=== PATIENT | male | born 1980 | race Caucasian/White ===

== ENCOUNTER 2016-05-24 08:02 | Emergency (ER) | payer OTHER ==
[~2016-05-24] VITALS: Ht 188 cm; Wt 104.1 kg
[~2016-05-24 08:02] MED LIST: CLON1TAB3 PO; METH10TA2 PO
[2016-05-24 08:08] VITALS: TEMP 36.5; Ht 188 cm; Wt 104.1 kg
[2016-05-24] MEDS ORDERED: METH10TA PO (08:21)
[2016-05-24] MEDS ORDERED: TRAZ100T29 PO (08:21)
--- NOTE | 2016-05-24 08:33 | EMERGENCY ROOM VISIT NOTE ---
History Report prepared by Lakeishaibloida: Ramona Crowell Under the Supervision of: Dr. Judy Devi M.D. First contact with patient: 08:14 Chief Complaint: HEAD INJURY (MINOR) Stated Complaint: FELL AT HIT HEAD YESTERDAY-KNOCKED OUT History of Present Illness The patient is a 35 year old male who presents to the Emergency Room with complaints of a head injury that occurred yesterday. He has had constant pain since then, which he currently rates a 5/10 in severity. The patient states that he was ice skating yesterday and slipped and fell. He hit the back of his head on the ice and lost consciousness. The next thing he remembers is being carried off of the ice. The patient had some nausea yesterday but denies vomiting. He denies any other injuries from the fall. He states that he did not want to come to the ER yesterday for evaluation because his daughter was staying with him. Source of History: patient Onset: yesterday Position: head Symptom Intensity: 5/10 Timing: constant Associated Symptoms: + nausea, No vomiting Review of Systems See HPI for pertinent positives & negatives. A total of 10 systems reviewed and were otherwise negative. Past Medical & Surgical Medical Problems: (1) LUMBAR DISC DISPLACEMENT Family History No pertinent family history stated. Social History Smoking Status: Never Smoker Drug Use: none Marital Status: Occupation Status: employed Current/Historical Medications Scheduled Docusate Sodium (Dulcolax Stool Softener), 100 MG PO DAILY Methadone Hcl (Dolophine), 100 MG PO DAILY Pantoprazole (Protonix), 40 MG PO DAILY Ranitidine Hcl (Zantac), 150 MG PO BID Trazodone Hcl (Trazodone), 100 MG PO HS Allergies Coded Allergies: Penicillins (Verified Allergy, Unknown, FULL BODY RASH/SOB CHILD, TOLERATED ROCEPHIN 8, 05/24/16) Physical Exam Vital Signs Date Time Temp Pulse Resp B/P Pulse Ox O2 Delivery O2 Flow Rate FiO2 05/24/16 10:17 65 16 131/67 98 Room Air 05/24/16 08:08 36.5 69 18 118/75 96 Room Air Physical Exam Vital signs reviewed. General: Well-appearing 35 year old male, in no significant distress. HEENT: No scleral icterus, PERRLA, neck supple, no C-spine tenderness, small hematoma to the back of his head. Cardiovascular: Regular rate and rhythm, no extra sounds. Pulmonary: Clear to auscultation bilaterally, normal work of breathing. Abdomen: Soft, nontender, nondistended, positive bowel sounds. Musculoskeletal: Atraumatic, no peripheral edema. Neurologic: Patient awake alert and oriented x 3, full strength in all 4 extremities. Cranial nerves 2 through 12 grossly intact. Skin: Warm, dry, no rash Medical Decision & Procedures ER Provider Diagnostic Interpretation: Radiology results as stated below per my review and radiologist interpretation: HEAD CT NONCONTRAST CT DOSE: 614.27 mGy.cm HISTORY: Mental status change CHI, +LOC TECHNIQUE: Multiaxial CT images of the head were performed without the use of intravenous contrast. Comparison: 10/17/2012 Findings: The paranasal sinuses and mastoid air cells are clear. The calvarium and skull base are intact. The ventricles and sulci are within normal limits. There is no mass, hematoma, midline shift, or acute infarct. Impression: No acute intracranial abnormality. Electronically signed by: Juan Mathew M.D. 05/24/2016 8:48 AM Dictated Date/Time: 05/24/2016 8:47 AM ED Course 0818: The patient was evaluated in room A3. A complete history and physical examination was performed. 1018: Upon reevaluation, the patient was resting comfortably. I discussed findings with the patient. He verbalized agreement of the treatment plan. The patient was discharged home. Medical Decision Differential diagnosis includes contusion, skull fracture, intracranial hemorrhage, concussion. This patient was evaluated and appeared to be in no significant distress. IV access was obtained and laboratory work was drawn. The patient was placed on the residential property consultant and found to be in a normal sinus rhythm. CT scan of the head was performed and reveals no evidence of acute intracranial hemorrhage. The CT scan of the cervical spine reveals no evidence of acute bony abnormality. The patient's injury was 24 hours ago. He is stable for discharge at this time. He will use Tylenol and ibuprofen as needed for pain. He was given a head injury handout. The patient will follow-up with his physician this week for reevaluation return to the ER for worsening of symptoms or any medical concerns. Impression Primary Impression: Closed head injury Additional Impression: Cervical strain Scribe Attestation The scribe's documentation has been prepared under my direction and personally reviewed by me in its entirety. I confirm that the note above accurately reflects all work, treatment, procedures, and medical decision making performed by me. Departure Information Dispostion Home / Self-Care Referrals Osmani Matt D.O. (PCP) Patient Instructions ED Head Injury Closed, My [facility] Additional Instructions Diagnosis: Closed head injury Please read head injury instructions. Tylenol 650 mg every 6 hours as needed for pain. Please avoid any repeat head injury until symptoms completely resolve. Please follow-up with your primary care physician this week for reevaluation. Return to the ER for worsening of symptoms or any medical concerns. Problem Qualifiers Primary Impression: Closed head injury Encounter type: initial encounter Qualified Codes: S09.90XA - Unspecified injury of head, initial encounter
--- NOTE | 2016-05-24 08:49 | DIAGNOSTIC IMAGING REPORT ---
HEAD CT NONCONTRAST CT DOSE: 614.27 mGy.cm HISTORY: Mental status change CHI, +LOC TECHNIQUE: Multiaxial CT images of the head were performed without the use of intravenous contrast. Comparison: 10/17/2012 Findings: The paranasal sinuses and mastoid air cells are clear. The calvarium and skull base are intact. The ventricles and sulci are within normal limits. There is no mass, hematoma, midline shift, or acute infarct. Impression: No acute intracranial abnormality. Electronically signed by: Juan Mathew M.D. 05/24/2016 8:48 AM Dictated Date/Time: 05/24/2016 8:47 AM
[2016-05-24 10:17] VITALS: BP 131/67; PULSE 65; O2SAT 98
[2016-10-08] MEDS ORDERED: GABA-113 PO (10:43)
[2016-11-09] MEDS ORDERED: PANT40TA PO (08:21)
[2016-11-09] MEDS ORDERED: RANI150T3 PO (08:21)
[2016-11-09] MEDS ORDERED: DOCU-105 PO (08:21)
== END 2016-05-24 10:19 | disposition home or self-care (01) ==
LOC: C.EDB 08:05 → C.EDA 10:19
DX: S09.90XA Unspecified injury of head, initial encounter (principal); S16.1XXA Strain of muscle, fascia and tendon at neck level, initial encounter; W00.0XXA Fall on same level due to ice and snow, initial encounter; Y93.21 Activity, ice skating; Z79.899 Other long term (current) drug therapy

== ENCOUNTER → 2016-08-18 | Outpatient (CLI) | payer OTHER ==
[~2016-08-18] MED LIST changes: +ACET-1311 PO; -CLON1TAB3 PO; +DOCU-105 PO; +GABA-113 PO; +METH10CO PO; +METH10TA PO; -METH10TA2 PO; +PANT40TA PO; +RANI150T3 PO; +RXC5 PO; +TRAZ100T29 PO
--- NOTE | 2016-08-18 09:47 | DIAGNOSTIC IMAGING REPORT ---
LEFT HIP UNILATERAL MIN 2 VIEWS CLINICAL HISTORY: LEFT HIP PAIN COMPARISON: None. DISCUSSION: The bones and joint spaces appear intact. There is no evidence of fracture, dislocation or bony disease. There is no evidence for soft tissue swelling. IMPRESSION: Negative study. Electronically signed by: Juan Mathew M.D. 08/18/2016 9:45 AM Dictated Date/Time: 08/18/2016 9:45 AM
--- NOTE | 2016-08-18 09:48 | DIAGNOSTIC IMAGING REPORT ---
LUMBAR SPINE 5 VIEWS HISTORY: Pain LBP COMPARISON: None. FINDINGS: There is no fracture. No subluxation. Mild degenerative disc change L5-S1 IMPRESSION: Mild degenerative disc change L5-S1. Otherwise negative study Electronically signed by: Juan Mathew M.D. 08/18/2016 9:46 AM Dictated Date/Time: 08/18/2016 9:46 AM
== END | disposition home or self-care (01) ==
LOC: C.RDSM 09:36
PROVIDERS: ATTEND Family Medicine
DX: M54.5 Low back pain (principal); M25.552 Pain in left hip

== ENCOUNTER → 2016-09-16 | Outpatient (CLI) | payer OTHER ==
--- NOTE | 2016-09-16 10:40 | DIAGNOSTIC IMAGING REPORT ---
LUMBAR SPINE MRI HISTORY: Pain. Neuropathy. LUMBAR RADICULOPATHY TECHNIQUE: Multiplanar multisequence MRI of the lumbar spine was performed without the use of contrast. COMPARISON: None. FINDINGS: For the purpose of the report the L5-S1 disc space will be located on axial image 23 of 25. Moderate degenerative disc change from L4 through S1. Posterior disc herniation L4-L5. Posterior disc bulge L5-S1. No significant bone marrow replacing process. L1-L2: No significant central canal or neural foraminal narrowing. L2-L3: No significant central canal or neural foraminal narrowing. L3-L4: No significant central canal or neural foraminal narrowing. L4-L5: Large left posterior disc herniation. Considerable deformity left anterior aspect thecal sac. Mild compromise left neuroforamina. L5-S1: Mild broad-based bulging disc. Mild narrowing left neuroforamina. Minimal impact anterior thecal sac. IMPRESSION: 1. Large Left posterior disc herniation L4-L5. 2. Mild broad-based disc bulge L5-S1. Electronically signed by: Juan Mathew M.D. 09/16/2016 10:39 AM Dictated Date/Time: 09/16/2016 10:36 AM
== END | disposition home or self-care (01) ==
LOC: C.MRI 09:06
PROVIDERS: ATTEND Family Medicine
DX: M25.552 Pain in left hip (principal); M54.16 Radiculopathy, lumbar region

== ENCOUNTER → 2016-10-08 | Day surgery (SDC) | payer SELFPAY ==
[2016-10-04 11:07] VITALS: Ht 188 cm; Wt 95.5 kg
[~2016-10-08] VITALS: Ht 188 cm; Wt 95.5 kg
[~2016-10-08] MED LIST changes: -ACET-1311 PO; +BUPIVACAINE 0.25% 2.5MG/ML PF 10 ML VIAL ONE; +LIDOCAINE HCL 1% MPF 5 ML VIAL ONE; -METH10TA PO; -RXC5 PO; +SODIUM CHLORIDE 0.9% INJ 10 ML VIAL ONE
--- NOTE | 2016-10-08 11:13 | History & Physical Bridge - SC ---
H&P Re-Evaluation Bridge Note: I have examined the patient, reviewed the History & Physical and in the interval since the performance of the History & Physical I have noted the following changes of clinical significance: No changes noted
[2016-10-08] MEDS: IOPAMIDOL INJ 61% 15 ML VIAL ONE (11:36)
[2016-10-08 11:46] VITALS: BP 133/84; PULSE 60; TEMP 36.8; O2SAT 96
--- NOTE | 2016-10-08 11:50 | Discharge Instructions ---
Discharge Instructions Date of Service Oct 08, 2016. Visit Reason for Visit: Lumbar Disc Displacement Discharge Discharge Diagnosis / Problem: Left leg pain Discharge Goals Goal(s): Decrease discomfort, Improve function Medications Stopped Medications Name(s): advil stopped 3 days ago Activity Recommendations Activity Limitations: resume your previous activity Anesthesia . Post Anesthesia Instructions: If you have had General Anesthesia or IV Sedation: * Do not drive today. * Resume driving when surgeon permits. * Do not make important decisions or sign legal documents today. * Call surgeon for: 1. Temperature elevations greater than 101 degrees F. 2. Uncontrollable pain. 3. Excessive bleeding. 4. Persistent nausea and vomiting. 5. Medication intolerance (nausea, vomiting or rash). * For nausea and vomiting use only clear liquids such as: tea, soda, bouillon until nausea subsides, then gradually increase diet as tolerated. * If you have any concerns or questions, call your surgeon's office. If physician is unavailable and it is an emergency, call 911 or go to the nearest emergency room. . Diet Recommendations Recommended Home Diet: resume previous diet Procedures Procedures Performed: Lumbar Epidural Steroid Injection Pending Studies Studies pending at discharge: no Medical Emergencies . Who to Call and When: Medical Emergencies: If at any time you feel your situation is an emergency, please call 911 immediately. . Non-Emergent Contact Non-Emergency issues call your: Specialist . . "Provider Documentation" section prepared by Augustine Goss. .
--- NOTE | 2016-10-08 11:52 | [facility] Operative Report ---
Operative Report Date of Service Oct 08, 2016. Operative Report DATE OF OPERATION: 10/08/2016 PREOPERATIVE DIAGNOSIS: L4-5 herniated nucleus pulposus with left lower extremity radiculopathy. POSTOPERATIVE DIAGNOSIS: Same. PROCEDURE: Left paramedian L5- S1 intralaminar epidural steroid injection under fluoroscopic guidance. SURGEON: Dr. Augustine Goss. INDICATIONS: The patient is a 36-year-old white male who presents today for an epidural to provide him with relief. PHYSICAL EXAMINATION: GENERAL: Pleasant male seated comfortably in no apparent distress. MUSCULOSKELETAL EXAMINATION: Lumbar paraspinal muscles were palpated. They were nontender. He had no sensitivity of the sciatic notch. He had normal lower extremity strength. Negative seated straight leg raises and had no difficulty with hip adduction. CONSENT: Verbal and written consent was obtained from the patient. Risks and benefits were reviewed. Risks include but are not limited to epidural abscess, epidural hematoma, allergic reaction, dural puncture. The patient wishes to proceed. PROCEDURE: The patient was taken back to the special procedures room of the [facility] where he was maintained in a prone position. Backside was cleansed with Betadine x3 and a dry sterile dressing was applied. Fluoroscope was used to identify the L1-2 intralaminar space and overlying skin on the right side was anesthetized with 4 mL of lidocaine 1% with a 25 gauge 1.5-inch needle. A 22-gauge 3-1/2 inch Tuohy needle was then directed down towards the intralaminar space. It was advanced under lateral fluoroscopic guidance. Loss of resistance was noted and Isovue-300 contrast 1 mL was injected in which demonstrated epidural uptake pattern which was confirmed with both AP and lateral views. He then underwent injection after negative aspiration of 40 mg of Depo-Medrol and 4 mL of preservative free sodium chloride. Injection was well tolerated. DISPOSITION: 1. The patient is taken out into the discharge recovery area where he will be discharged home once discharge criteria have been met. 2. Follow up in the [facility] office in 2-4 weeks. I attest to the content of the Intraoperative Record and any orders documented therein. Any exceptions are noted below.
== END | disposition home or self-care (01) ==
LOC: X.SURG 10:30
PROVIDERS: ATTEND Physical Medicine & Rehabilitation
DX: M51.87 Other intervertebral disc disorders, lumbosacral region (principal)

== ENCOUNTER 2016-11-09 08:43 | Observation (INO) | payer OTHER ==
[~2016-11-09] VITALS: Ht 188 cm; Wt 98.0 kg
[~2016-11-09 08:43] MED LIST changes: -BUPIVACAINE 0.25% 2.5MG/ML PF 10 ML VIAL ONE; -LIDOCAINE HCL 1% MPF 5 ML VIAL ONE; -METH10CO PO; -SODIUM CHLORIDE 0.9% INJ 10 ML VIAL ONE
[2016-11-09] MEDS ORDERED: ONDANSETRON INJ 2 MG/ML 2 ML VIAL IV STA (09:29)
[2016-11-09] MEDS ORDERED: HYDROmorphone INJ 1 MG/ML SYR IV STA (09:29)
--- NOTE | 2016-11-09 09:46 | DIAGNOSTIC IMAGING REPORT ---
CHEST ONE VIEW PORTABLE HISTORY: Low back pain COMPARISON: Chest 11/08/2005. FINDINGS: The lungs are clear. Cardiac silhouette is normal in size. No pleural effusions. No pneumothorax. IMPRESSION: No acute process. Electronically signed by: Braxton Chaney M.D. 11/09/2016 9:45 AM Dictated Date/Time: 11/09/2016 9:44 AM
[2016-11-09 09:58] LABS: BASO % 0.9 %; BASO ABS # 0.04 K/uL (0-0.2); COMPLETE YES; EOS % 4.1 %; HEMATOCRIT 36.4 % (42-52); LYMPH % 40.7 %; LYMPH ABS # 1.77 K/uL (1.2-3.4); MEAN CELL VOLUME 88.3 fL (80-100); MEAN CORPUSCULAR HEMOGLOBIN 29.6 pg (25-34); MEAN CORPUSCULAR HGB CONC 33.5 g/dl (32-36); MEAN PLATELET VOLUME 8.6 fL (7.4-10.4); MONO % 8.3 %; PLATELET COUNT 313 K/uL (130-400); RED BLOOD COUNT 4.12 M/uL (4.7-6.1); WHITE BLOOD COUNT 4.35 K/uL (4.8-10.8)
--- NOTE | 2016-11-09 09:58 | EMERGENCY ROOM VISIT NOTE ---
History First contact with patient: 08:52 Chief Complaint: BACK PAIN Stated Complaint: ACCUTE SEVERE BACK PAIN - LOWER BACK AND LEFT HIP History of Present Illness The patient is a 36 year old male who presents to the Emergency Room with complaints of "acute severe back pain, low back pain and left hip". The patient states that he has a history of low back pain, and has been following with Dr. Goss locally for such. He states that back in August, he fell down a flight of steps injuring his low back. He states that he an MRI performed on September 16, which reviewed large bulging disks. He states that he has been unable to work since August, and had to quit his job moved back in with his parents. He had had to change his car from a standard traumatic secondary to his degree of discomfort. He rates the low back pain at rest is 6/10, and when it's aggravated it's a 9/10. He describes the pain as burning, shooting, stabbing pain that radiates down the left leg. He also notes a numbness sensation in the left leg. He has had spinal injections with minimal relief. Today he had an appointment with Dr. Goss, and secondary to his degree of pain and was referred here by Dr. Mcgrath for further evaluation, management and potential surgical consultation. The patient states that the pain is in the low back radiating down the left leg. He notes minimal numbness in that region. He denies any bowel or bladder incontinence. He notes that he had a recent MRI, which shows a large disc bulge. He denies any fevers or chills. Review of Systems A complete 10-point Review of Systems was discussed with the patient, with pertinent positives and negatives listed in the History of Present Illness. All remaining Review of Systems questions can be considered negative unless otherwise specified. Past Medical/Surgical History Medical Problems: (1) Anxiety (2) Back pain (3) Disc herniation (4) GERD (gastroesophageal reflux disease) (5) History of opioid addiction (6) LUMBAR DISC DISPLACEMENT Surgical Problems: (1) H/O knee surgery (2) Status post arthroscopy of hip Social History Smoking Status: Never Smoker Drug Use: none Marital Status: Occupation Status: employed Current/Historical Medications Scheduled Docusate Sodium (Dulcolax Stool Softener), 100 MG PO BID Methadone Hcl (Methadone Hcl Intensol), 103 MG PO QAM Pantoprazole (Protonix), 40 MG PO QAM Ranitidine Hcl (Zantac), 150 MG PO QAM Scheduled PRN Acetaminophen (Tylenol), 325 MG PO UD PRN for Pain Physical Exam Vital Signs Date Time Temp Pulse Resp B/P (MAP) Pulse Ox O2 Delivery O2 Flow Rate FiO2 11/09/16 15:19 64 18 117/65 95 Room Air 11/09/16 13:37 84 18 120/54 11/09/16 11:49 64 18 136/73 11/09/16 10:00 79 11/09/16 09:54 72 18 137/73 97 Room Air 11/09/16 09:53 97 Room Air 11/09/16 08:45 36.4 93 20 127/69 100 Room Air Physical Exam VITAL SIGNS - Vital signs and nursing notes were reviewed. Afebrile, normotensive, non-tachycardic and is saturating well on room air 100%. GENERAL -36-year-old male appearing his stated age who is in no acute distress. Communicates well with provider and answers questions appropriately. SKIN - Without rashes. No petechial rashes. HEAD - NC/AT. EYES - no hyphema or scleral icterus. EARS - No deformities of external structures noted on gross examination bilaterally. NOSE - Midline and without cyanosis. No epistaxis or purulent drainage noted. MOUTH/OROPHARYNX - Without perioral cyanosis. LUNGS - Chest wall symmetric without accessory muscle use, intercostals retractions, or central cyanosis. Normal vesicular breath sounds CTA B/L. No wheezes, rales, or rhonchi appreciated. CARDIAC - RRR with S1/S2. No murmur, rubs, or gallops appreciated. ABDOMEN - Abdominal contour without pulsations or visible masses. BS normoactive all four quadrants. No tenderness, palpable masses, hepatosplenomegaly, or ascites noted. EXTREMITIES - No clubbing or peripheral cyanosis. No pretibial edema present. + 5/5 strength noted in UE/LE bilaterally. NEUROLOGIC - Cranial nerves II through XII grossly intact. Sensory intact to light touch throughout. PSYCH - A&O. and cooperates fully with examiner. Pt is very pleasant and interacts well with examiner. Medical Decision & Procedures ER Provider Diagnostic Interpretation: CHEST ONE VIEW PORTABLE HISTORY: Low back pain COMPARISON: Chest 11/08/2005. FINDINGS: The lungs are clear. Cardiac silhouette is normal in size. No pleural effusions. No pneumothorax. IMPRESSION: No acute process. Electronically signed by: Braxton Chaney M.D. 11/09/2016 9:45 AM Dictated Date/Time: 11/09/2016 9:44 AM Laboratory Results 11/09/16 09:44 Red Blood Count 4.12, Mean Corpuscular Volume 88.3, Mean Corpuscular Hemoglobin 29.6, Mean Corpuscular Hemoglobin Concent 33.5, Mean Platelet Volume 8.6, Neutrophils (%) (Auto) 46.0, Lymphocytes (%) (Auto) 40.7, Monocytes (%) (Auto) 8.3, Eosinophils (%) (Auto) 4.1, Basophils (%) (Auto) 0.9, Neutrophils # (Auto) 2.00, Lymphocytes # (Auto) 1.77, Monocytes # (Auto) 0.36, Eosinophils # (Auto) 0.18, Basophils # (Auto) 0.04 11/09/16 09:44 Test 11/09/16 09:44 White Blood Count 4.35 K/uL (4.8-10.8) Red Blood Count 4.12 M/uL (4.7-6.1) Hemoglobin 12.2 g/dL (14.0-18.0) Hematocrit 36.4 % (42-52) Mean Corpuscular Volume 88.3 fL (80-100) Mean Corpuscular Hemoglobin 29.6 pg (25-34) Mean Corpuscular Hemoglobin Concent 33.5 g/dl (32-36) Platelet Count 313 K/uL (130-400) Mean Platelet Volume 8.6 fL (7.4-10.4) Neutrophils (%) (Auto) 46.0 % Lymphocytes (%) (Auto) 40.7 % Monocytes (%) (Auto) 8.3 % Eosinophils (%) (Auto) 4.1 % Basophils (%) (Auto) 0.9 % Neutrophils # (Auto) 2.00 K/uL (1.4-6.5) Lymphocytes # (Auto) 1.77 K/uL (1.2-3.4) Monocytes # (Auto) 0.36 K/uL (0.11-0.59) Eosinophils # (Auto) 0.18 K/uL (0-0.5) Basophils # (Auto) 0.04 K/uL (0-0.2) RDW Standard Deviation 48.4 fL (36.4-46.3) RDW Coefficient of Variation 15.0 % (11.5-14.5) Immature Granulocyte % (Auto) 0.0 % Immature Granulocyte # (Auto) 0.00 K/uL (0.00-0.02) Prothrombin Time 10.5 SECONDS (9.0-12.0) Prothromb Time International Ratio 1.0 (0.9-1.1) Activated Partial Thromboplast Time 25.4 SECONDS (21.0-31.0) Partial Thromboplastin Ratio 1.0 Anion Gap 4.0 mmol/L (3-11) Est Creatinine Clear Calc Drug Dose 143.8 ml/min Estimated GFR () 130.7 Estimated GFR (Non- 112.7 BUN/Creatinine Ratio 13.0 (10-20) Calcium Level 8.7 mg/dl (8.5-10.1) Total Bilirubin 0.2 mg/dl (0.2-1) Aspartate Amino Transf (AST/SGOT) 18 U/L (15-37) Alanine Aminotransferase (ALT/SGPT) 28 U/L (12-78) Alkaline Phosphatase 43 U/L (45-117) Total Protein 6.8 gm/dl (6.4-8.2) Albumin 3.7 gm/dl (3.4-5.0) Globulin 3.1 gm/dl (2.5-4.0) Albumin/Globulin Ratio 1.2 (0.9-2) Medications Administered Medications (Trade) Dose Ordered Sig/Vincent Route Start Time Stop Time Status Last Admin Dose Admin Hydromorphone HCl (Dilaudid Inj) 1 mg NOW STAT IV 11/09/16 09:29 11/09/16 09:31 DC 11/09/16 09:45 1 MG Ondansetron HCl (Zofran Inj) 4 mg NOW STAT IV 11/09/16 09:29 11/09/16 09:31 DC 11/09/16 09:45 4 MG Hydromorphone HCl (Dilaudid Inj) 0.5 mg NOW STAT IV 11/09/16 10:27 11/09/16 10:28 DC 11/09/16 10:32 0.5 MG Hydromorphone HCl (Dilaudid Inj) 0.5 mg NOW STAT IV 11/09/16 11:30 11/09/16 11:31 DC 11/09/16 11:47 0.5 MG Medical Decision Patient was seen and evaluated as above. After obtaining a thorough history and physical examination IV access was initiated, and the above workup was performed. Patient presents to us today with low back pain, referred by Dr. Goss. He has a history of bulging disks, he has been in excruciating pain. He presents to us today it appears to be in a good deal of pain, and was provided Dilaudid. My attending noted that Dr. Goss personally called in and spoke with him. He recommended surgical consultation for his spine. I then obtained basic lab work, did not feel that reimaging was necessary as there is no evidence of cauda equina syndrome, and placed a call out to orthopedics. This was to Dr. Mcgrath. Patient was given 1 mg of Dilaudid for his pain. He was reevaluated and was feeling continued pain. He was given 0.5 mg of Dilaudid. EKG is unremarkable. This was obtained secondary to potential surgical intervention. Lab work was unremarkable for significant process. I spoke with the attending physician, as well as Dr. Mcgrath regarding the case. Dr. Mcgrath informed me that he would like to perform surgery on the individual tomorrow. He'll be admitted to medicine for further evaluation and management. Please refer to further documentation regarding his stay. In evaluation treatment this patient the following differential diagnoses were entertained: Herniated disc, cauda equina syndrome, strain, among others. Impression Primary Impression: Back pain Departure Information Dispostion Admitted as an inpatient Condition GOOD Referrals Osmani Matt D.O. (PCP) Patient Instructions My [facility]
[2016-11-09 10:07] LABS: PROTHROMBIN TIME (PATIENT) 10.5 SECONDS (9.0-12.0)
[2016-11-09 10:18] LABS: CALCIUM 8.7 mg/dl (8.5-10.1); CREATININE 0.81 mg/dl (0.60-1.40)
[2016-11-09 10:20] LABS: ALB/GLOB RATIO 1.2 (0.9-2)
[2016-11-09] MEDS ORDERED: HYDROmorphone INJ 0.5 MG/0.5 ML SYR IV STA ×2 (10:27→11:30)
[2016-11-09] MEDS ORDERED: METH10CO PO (11:07)
[2016-11-09] MEDS ORDERED: POLYETHYLENE (MIRALAX) 17 GM PACK PO PRN (15:45)
[2016-11-09] MEDS ORDERED: ONDANSETRON INJ 2 MG/ML 2 ML VIAL IV PRN (15:45)
[2016-11-09] MEDS ORDERED: IV FLUIDS COMPLETED PRN (15:45)
[2016-11-09] MEDS ORDERED: ACET-1311 PO (16:25)
[2016-11-09 16:40] VITALS: BP 147/81; PULSE 70; TEMP 36.8; O2SAT 99
[2016-11-09] MEDS: HYDROmorphone INJ 1 MG/ML SYR IV PRN ×3 (16:48→23:24)
[2016-11-09] MEDS: ACETAMINOPHEN 325 MG TAB PO PRN (17:16)
[2016-11-09 17:52] VITALS: BP 147/81; PULSE 70; TEMP 36.8; O2SAT 99; Ht 188 cm; Wt 98.0 kg
[2016-11-09 18:17] VITALS: O2SAT 99
--- NOTE | 2016-11-09 18:30 | History and Physical ---
History & Physical Date & Time of Service: Nov 09, 2016 at 16:20 Chief Complaint: Accute Severe Back Pain - Lower Back And Left Hip Primary Care Physician: Osmani Matt D.O. History of Present Illness Source: patient, clinic records, hospital records This is a 36 y/o male with PMH of GERD, lumbar disc herniation, hx opioid addiction on methadone, who presents to the ED with back pain. Patient states back pain started s/p fall in August 2016. No further injuries, but pain has progressively worsened. Pain is located in low back with radiation to left lower extremity. He reports ongoing paresthesias of anterior left reynoso and dorsal aspect of left foot. He has been unable to work secondary to pain. Ambulating has been painful. Has been following with Dr. Goss of [facility] orth[facility]. MRI on 09/16/16 showed large left posterior disc herniation L4-L5, mild broad-based disc bulge L5-S1. Had steroid injection without relief. Was initially taking gabapentin and Flexeril but ran out. Has been taking Tylenol. Has also been taking a family member's Percocet, he states this was because he could not get a sooner appointment with his orthopedist. He saw Dr. Goss this morning who sent him to the ER. He received 3 doses of Dilaudid which helped, but the pain is now returning, currently rated 8/10. He denies weakness, groin numbness, or bowel or bladder incontinence. Has been taking Colace for hard stools. Denies any fevers, chills, chest pain, SOB, N/V. Denies history of cardiac disease, stroke, HTN, DM, kidney disease. Past Medical/Surgical History Medical Problems: (1) Anxiety Status: Chronic (2) Disc herniation Status: Chronic (3) GERD (gastroesophageal reflux disease) Status: Chronic (4) History of opioid addiction Status: Chronic (5) LUMBAR DISC DISPLACEMENT Status: Chronic Surgical Problems: (1) H/O knee surgery Status: Chronic (2) Status post arthroscopy of hip Status: Chronic Family History FH: cancer FATHER Social History Smoking Status: Never Smoker Smokeless Tobacco Use: former smokeless tobacco use Alcohol Use: none Drug Use: none Marital Status: Housing status: other (currently staying with family due to his back pain) Occupational Status: other (has not been able to work due to back pain) Immunizations History of Influenza Vaccine: No History of Tetanus Vaccine?: Yes History of Pneumococcal: No History of Hepatitis B Vaccine: Yes Multi-Drug Resistant Organisms History of MDRO: No Allergies Coded Allergies: Penicillins (Verified Allergy, Unknown, FULL BODY RASH/SOB CHILD, TOLERATED ROCEPHIN 10/31, 11/09/16) Home Medications Scheduled Docusate Sodium (Dulcolax Stool Softener), 100 MG PO BID Methadone Hcl (Methadone Hcl Intensol), 103 MG PO QAM Pantoprazole (Protonix), 40 MG PO QAM Ranitidine Hcl (Zantac), 150 MG PO QAM Scheduled PRN Acetaminophen (Tylenol), 325 MG PO UD PRN for Pain Review of Systems Ten systems reviewed and negative except as noted in HPI. Physical Exam Vital Signs Date Time Temp Pulse Resp B/P (MAP) Pulse Ox O2 Delivery O2 Flow Rate FiO2 11/09/16 15:19 64 18 117/65 95 Room Air 11/09/16 13:37 84 18 120/54 11/09/16 11:49 64 18 136/73 11/09/16 10:00 79 11/09/16 09:54 72 18 137/73 97 Room Air 11/09/16 09:53 97 Room Air 11/09/16 08:45 36.4 93 20 127/69 100 Room Air General Appearance: WD/WN, no apparent distress Head: normocephalic, atraumatic Eyes: normal inspection, PERRL, EOMI, sclerae normal ENT: hearing grossly normal, pharynx normal Neck: supple, trachea midline Respiratory/Chest: lungs clear, normal breath sounds, no respiratory distress, no accessory muscle use Cardiovascular: regular rate, rhythm, no murmur Abdomen/GI: normal bowel sounds, non tender, soft Extremities/Musculoskelatal: normal inspection, no pedal edema Neurologic/Psych: alert, normal mood/affect, normal reflexes (bilateral patellar reflexes normal), oriented x 3, + pertinent finding (ankle flexion/ extension 5/5 RLE, 4/5 LLE (possibly secondary to pain), able to sense light touch on bilateral LE however subjective decreased sensation left anterior lower leg and dorsum of left foot) Skin: normal color, warm/dry Diagnostics Laboratory Results Results Past 24 Hours Test 11/09/16 09:44 Range/Units White Blood Count 4.35 4.8-10.8 K/uL Red Blood Count 4.12 4.7-6.1 M/uL Hemoglobin 12.2 14.0-18.0 g/dL Hematocrit 36.4 42-52 % Mean Corpuscular Volume 88.3 80-100 fL Mean Corpuscular Hemoglobin 29.6 25-34 pg Mean Corpuscular Hemoglobin Concent 33.5 32-36 g/dl Platelet Count 313 130-400 K/uL Mean Platelet Volume 8.6 7.4-10.4 fL Neutrophils (%) (Auto) 46.0 % Lymphocytes (%) (Auto) 40.7 % Monocytes (%) (Auto) 8.3 % Eosinophils (%) (Auto) 4.1 % Basophils (%) (Auto) 0.9 % Neutrophils # (Auto) 2.00 1.4-6.5 K/uL Lymphocytes # (Auto) 1.77 1.2-3.4 K/uL Monocytes # (Auto) 0.36 0.11-0.59 K/uL Eosinophils # (Auto) 0.18 0-0.5 K/uL Basophils # (Auto) 0.04 0-0.2 K/uL RDW Standard Deviation 48.4 36.4-46.3 fL RDW Coefficient of Variation 15.0 11.5-14.5 % Immature Granulocyte % (Auto) 0.0 % Immature Granulocyte # (Auto) 0.00 0.00-0.02 K/uL Prothrombin Time 10.5 9.0-12.0 SECONDS Prothromb Time International Ratio 1.0 0.9-1.1 Activated Partial Thromboplast Time 25.4 21.0-31.0 SECONDS Partial Thromboplastin Ratio 1.0 Sodium Level 139 136-145 mmol/L Potassium Level 4.0 3.5-5.1 mmol/L Chloride Level 109 98-107 mmol/L Carbon Dioxide Level 26 21-32 mmol/L Anion Gap 4.0 3-11 mmol/L Blood Urea Nitrogen 11 7-18 mg/dl Creatinine 0.81 0.60-1.40 mg/dl Est Creatinine Clear Calc Drug Dose 143.8 ml/min Estimated GFR () 130.7 Estimated GFR (Non- 112.7 BUN/Creatinine Ratio 13.0 10-20 Random Glucose 77 70-99 mg/dl Calcium Level 8.7 8.5-10.1 mg/dl Total Bilirubin 0.2 0.2-1 mg/dl Aspartate Amino Transf (AST/SGOT) 18 15-37 U/L Alanine Aminotransferase (ALT/SGPT) 28 12-78 U/L Alkaline Phosphatase 43 45-117 U/L Total Protein 6.8 6.4-8.2 gm/dl Albumin 3.7 3.4-5.0 gm/dl Globulin 3.1 2.5-4.0 gm/dl Albumin/Globulin Ratio 1.2 0.9-2 Diagnostic Radiology CHEST ONE VIEW PORTABLE HISTORY: Low back pain COMPARISON: Chest 11/08/2005. FINDINGS: The lungs are clear. Cardiac silhouette is normal in size. No pleural effusions. No pneumothorax. IMPRESSION: No acute process. EKG NSR, no ectopy or ischemic findings Impression Assessment and Plan BACK PAIN/ LUMBAR HERNIATED DISC S/p fall in August 2016 MRI on 09/16/16 showed large left posterior disc herniation L4-L5, mild broad- based disc bulge L5-S1 Pain control with IV Dilaudid 1 mg q3h PRN Consult ortho; Dr. Mcgrath is aware; plan is for surgical intervention in AM Preop workup- labs, EKG, CXR unremarkable; may proceed with surgery NPO after midnight HX OF OPIOID ADDICTION On methadone through [facility] ([phone]), dose needs to be verified during their business hours (5:30 am-1:30 pm) Methadone dose is 103 mg/ day per patient, will continue Patient counselled not to take family member's medications, but rather to present to ER if he cannot get an appointment and pain is uncontrolled CONSTIPATION Continue Colace PRN Miralax GERD Continue Protonix and Zantac DVT PROPHYLAXIS SCD's due to plan for surgery in am FULL CODE DISPOSITION Observation med/ surg Follows with Dr. Osmani Matt for primary care Patient seen in collaboration with Dr. Naqvi. Please see his addendum. Agree with above h and p. briefly 36YM with hx of fall and has disc prolapse and failed out patient treatment comes for elective surgery. patient is on methadone for opioid addiction. Complains of severe pain in back and left hip region. Afebrile. No chest pain or sob. Hemodynamics stable. 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 Y/N: Yes Risk Level: Low
--- NOTE | 2016-11-09 19:09 | Progress Note ---
Progress Note Date of Service Nov 09, 2016. Progress Note Pt scheduled for lumbar decompression tomorrow. Pt with chronic pain issue on methadone. Anesthesia plan was discussed and consent obtained. Pt was also advised of NPO time and chewing tobacco.
[2016-11-09] MEDS: SODIUM CHLORIDE 0.9% 1000ML 1,000 ML IV SCH (20:31)
[2016-11-09] MEDS: DOCUSATE SODIUM 100 MG CAP PO SCH (20:35)
[2016-11-09] MEDS: GABAPENTIN 100 MG CAP PO SCH (20:36)
[2016-11-09] MEDS: CYCLOBENZAPRINE HCL 5 MG TAB PO PRN (22:30)
[2016-11-09 22:38] VITALS: PULSE 82; O2SAT 94
[2016-11-09 22:46] VITALS: BP 124/82; PULSE 61; TEMP 36.8; O2SAT 96
[2016-11-10] VITALS (9 sets, daily range): BP systolic 112–136; BP diastolic 67–84; PULSE 58–102; TEMP 36.3–37.1; O2SAT 94–100
[2016-11-10] MEDS: ACETAMINOPHEN 325 MG TAB PO PRN (00:04)
[2016-11-10] MEDS: HYDROmorphone INJ 1 MG/ML SYR IV PRN ×17 (06:47→16:51)
[2016-11-10] MEDS ORDERED: NURSING VERBAL MED ORDER ONE ×3 (07:45→17:15)
[2016-11-10] MEDS ORDERED: NALOXONE HCL 0.4 MG/1 ML VIAL/CARP IV PRN ×3 (08:00→17:15)
[2016-11-10] MEDS: SODIUM CHLORIDE 0.9% 1000ML 1,000 ML IV SCH (08:17)
[2016-11-10] MEDS: GABAPENTIN 100 MG CAP PO SCH ×2 (08:18→20:33)
[2016-11-10] MEDS: DOCUSATE SODIUM 100 MG CAP PO SCH ×2 (08:18→20:34)
[2016-11-10] MEDS: PANTOprazole SOD 40 MG TAB PO SCH (08:20)
[2016-11-10] MEDS: RANITIDINE HCL 150 MG TAB PO SCH (08:20)
[2016-11-10] MEDS ORDERED: HYDROmorphone HCL 0.5MG/ML 50 ML CASSETTE IV PRN (08:30)
[2016-11-10] MEDS ORDERED: SODIUM CHLORIDE 0.9% 1000ML 1,000 ML IV SCH ×2 (08:30→17:15)
[2016-11-10] MEDS: METHADONE ORAL SOLN 2 MG/1ML PO SCH (08:41)
--- NOTE | 2016-11-10 10:19 | Orthopedic Consultation ---
Orthopedic Consultation Date of Consultation: Nov 10, 2016. Attending Physician: Jasvir Naqvi MD Reason for Consultation: Back and left leg pain History of Present Illness Very pleasant 36-year-old male who had the onset of severe back and left. Leg pain several weeks ago. He didn't managed as an outpatient with epidural injections. Unfortunately failed to provide any long-term relief. He is markedly debilitated secondary to the pain. He does of history of chronic back pain is being medically managed for this. Symptoms involving the lumbosacral junction extending the left buttock posterior thigh extending down to the anterior tibia and dorsum of his foot. Extremities asymptomatic. Denies any loss of bowel or bladder control. Past Medical/Surgical History Medical Problems: (1) Closed head injury Status: Acute Family History FH: cancer FATHER Social History Smoking Status: Never Smoker Smokeless Tobacco Use: former smokeless tobacco use Alcohol Use: none Drug Use: none Marital Status: Occupation Status: other (has not been able to work due to back pain) Allergies Coded Allergies: Penicillins (Verified Allergy, Unknown, FULL BODY RASH/SOB CHILD, TOLERATED ROCEPHIN 10/31, 11/09/16) Home Medications Scheduled Docusate Sodium (Dulcolax Stool Softener), 100 MG PO BID Methadone Hcl (Methadone Hcl Intensol), 103 MG PO QAM Pantoprazole (Protonix), 40 MG PO QAM Ranitidine Hcl (Zantac), 150 MG PO QAM Scheduled PRN Acetaminophen (Tylenol), 325 MG PO UD PRN for Pain Current Inpatient Medications Current Inpatient Medications Medications (Trade) Dose Ordered Sig/Vincent Route Start Time Stop Time Status Last Admin Dose Admin Miscellaneous (Iv Fluids Completed) 1 ea PRN PRN N/A 11/09/16 15:45 11/09/17 15:44 Acetaminophen (Tylenol Tab) 650 mg Q4H PRN PO 11/09/16 15:45 12/09/16 15:44 11/10/16 00:04 650 MG Polyethylene (Miralax Powder Packet) 17 gm DAILY PRN PO 11/09/16 15:45 12/09/16 15:44 Ondansetron HCl (Zofran Inj) 4 mg Q6H PRN IV 11/09/16 15:45 12/09/16 15:44 Hydromorphone HCl (Dilaudid Inj) 1 mg Q3H PRN IV 11/09/16 16:15 11/23/16 16:14 11/10/16 06:47 1 MG Docusate Sodium (coLACE CAP) 100 mg BID PO 11/09/16 21:00 12/09/16 20:59 11/10/16 08:18 100 MG Pantoprazole Sodium (Protonix Tab) 40 mg QAM PO 11/10/16 09:00 12/10/16 08:59 11/10/16 08:20 40 MG Ranitidine HCl (zANTac TAB) 150 mg QAM PO 11/10/16 09:00 12/10/16 08:59 11/10/16 08:20 150 MG Methadone HCl (Methadone HCl) 103 mg QAM PO 11/10/16 09:00 12/10/16 08:59 11/10/16 08:41 103 MG Cyclobenzaprine HCl (Flexeril Tab) 5 mg BID PRN PO 11/09/16 19:45 12/09/16 19:44 11/09/16 22:30 5 MG Gabapentin (Neurontin Cap) 200 mg BID PO 11/09/16 21:00 12/09/16 20:59 11/10/16 08:18 200 MG Sodium Chloride 1,000 ml @ 80 mls/hr [id number] IV 11/09/16 19:45 12/09/16 19:44 11/10/16 08:17 80 MLS/HR Naloxone HCl (Narcan Inj) 0.1 mg Q5M PRN IV 11/10/16 08:00 12/10/16 07:59 Hydromorphone HCl (Dilaudid Watch Parts Inspector) 25 mg PRN PRN IV 11/10/16 08:30 11/24/16 08:29 11/10/16 09:41 25 MG Sodium Chloride 1,000 ml @ 15 mls/hr Q24H IV 11/10/16 08:30 12/10/16 08:29 Physical Exam Date Time Temp Pulse Resp B/P (MAP) Pulse Ox O2 Delivery O2 Flow Rate FiO2 11/10/16 08:06 97 Room Air 11/10/16 08:04 36.5 60 16 128/84 (99) 97 Room Air 11/09/16 23:30 Room Air 11/09/16 22:46 36.8 61 16 124/82 (96) 96 Room Air 11/09/16 22:38 82 94 Room Air 11/09/16 18:17 99 Room Air 11/09/16 17:52 36.8 70 18 147/81 99 Room Air 11/09/16 16:40 36.8 70 18 147/81 (103) 99 Room Air 11/09/16 15:19 64 18 117/65 95 Room Air 11/09/16 13:37 84 18 120/54 11/09/16 11:49 64 18 136/73 On physical exam patient is in obvious distress. Exhibits reasonable strength detailed testing bilateral extremities plantar flexion dorsiflexion quadriceps. There is however breakaway weakness to examine left lower extremity secondary to pain. There is sensory deficits to left lower externally compared to right upper extremity. Is markedly positive tension signs straight-leg raising on the left contralateral signs on the right. Assessment & Plan Assessment herniated nucleus pulposus L4 5 on the left with severe spinal stenosis and neural encroachment. Patient's MRI performed in August of this year [facility] does demonstrate degenerative changes marked disc space collapse at L5-S1 and to a lesser degree at L4 5. There is a massive disc herniation L4 5 with severe canal encroachment and subsequent spinal stenosis. Is on the left side. There is significant compression of the traversing L5 nerve root on the left. Plan at this time the patient is an extensive course of nonoperative care is decline significantly in his significant distress. Subsequently would recommend a lumbar decompression. To adequately decompress the canal and addressed the massive disc herniation he would require a midline decompression at L4 5. And also partial discectomy on the left. 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 Risks benefits pros cons and alternatives were outlined in detail. Risk include but not limited to from anesthesia blindness sterile paralysis nerve damage blood loss infection. Benefits of hopefully marked improvement of his radicular complaints. At this time he is nothing by mouth we will try perform surgery as soon as possible.
[2016-11-10] MEDS ORDERED: MIDAZOLAM HCL 1 MG/ML 2ML VIAL ONE (13:16)
[2016-11-10] MEDS ORDERED: FENTANYL CITRATE INJ 50 MCG/1 ML 2 ML VIAL ONE ×3 (13:16→14:40)
[2016-11-10] MEDS ORDERED: CLINDAMYCIN 600 MG/54 ML D5W IV ONE (13:39)
[2016-11-10] MEDS ORDERED: BUPIVACAINE/EPINEPHRINE 0.5% MPF 1:200,000 10 ML VIAL ONE (13:46)
[2016-11-10] MEDS ORDERED: BACITRACIN 50000 UNIT VIAL ONE (13:46)
[2016-11-10] MEDS ORDERED: HYDROmorphone INJ 2 MG/ML SYR/VIAL ONE (14:14)
[2016-11-10] MEDS ORDERED: PROPOFOL IV EMULSION 10 MG/ML 20 ML VIAL IV ONE (14:25)
[2016-11-10] MEDS ORDERED: ROCURONIUM BROMIDE 10 MG/ML 5 ML VIAL ONE (14:25)
[2016-11-10] MEDS ORDERED: LIDOCAINE HCL 2% 2 ML VIAL (20MG/ML) ONE (14:25)
[2016-11-10] MEDS ORDERED: DEXAMETHASONE SOD INJ 4 MG/ML VIAL ONE (14:25)
[2016-11-10] MEDS ORDERED: ONDANSETRON INJ 2 MG/ML 2 ML VIAL ONE (14:25)
[2016-11-10] MEDS ORDERED: NEOSTIGMINE METHYLSULFATE 1 MG/ML 10ML VIAL ONE (15:02)
[2016-11-10] MEDS ORDERED: GLYCOPYRROLATE INJ 0.2 MG/ML VIAL ONE (15:02)
[2016-11-10] MEDS ORDERED: FLOSEAL HEMOSTATIC MATRIX 10ML TOP ONE (15:12)
[2016-11-10] MEDS ORDERED: KETOROLAC TROMETHAMINE 30 MG/ML VIAL ONE (15:21)
--- NOTE | 2016-11-10 15:23 | DIAGNOSTIC IMAGING REPORT ---
SPINE ONE VIEW, ANY LEVEL HISTORY: L4-L5 decompression. FLUOROSCOPY TIME: 4 seconds. FINDINGS: Intraoperative fluoroscopy was provided for the lumbar spine. 2 fluoroscopic spot images were obtained. IMPRESSION: Fluoroscopy provided for a L4-L5 decompression. The above report was generated using voice recognition software. It may contain grammatical, syntax or spelling errors. Electronically signed by: Juan Mathew M.D. 11/10/2016 3:21 PM Dictated Date/Time: 11/10/2016 3:21 PM
--- NOTE | 2016-11-10 15:29 | [facility] Operative Report ---
Operative Report Operative Date Nov 10, 2016. Pre-Operative Diagnosis Herniated nucleus pulposus L4 5 on the left with severe spinal stenosis and neural encroachment. Post-Operative Diagnosis same as pre-operative Procedure(s) Performed #1 lumbar decompression medial facetectomy and partial discectomy L4 5. #2 placement of posterior stabilization Coflex 12 mm in height. Surgeon Dr. Augustine Mcgrath Estimated Blood Loss 25ML Findings Spinal stenosis with herniated nuclear pulposus L4 5 Specimens A. Disc Material L4-L5 Description of Procedure Patient was met with preoperatively case discussed all questions are dressed. After informed consent patient was taken back to the operative suite after undergoing successful intubation placed in a prone position the Jamshid table top Lamberto frame. All promises well-padded eyes inspected to ensure there is no external pressure placed upon. This point lumbar spine was prepped and draped in the normal sterile fashion. With the assistance of fluoroscopy identified L4 5 disc space and midline incision was created overlying this region. Sharp dissection with the assistance of Bovie cautery was performed onto an exposing interlaminar spaces of 45 bilaterally. Self-retaining retractors placed. A midline decompression was then performed clean bilateral medial facetectomies to address all stenosis. Was able to mobilize the traversing L5 nerve root medially to address a massive disc herniation occupying lateral recess. This was removed in its entirety. The area was explored several times to ensure all instruments were addressed. At this complete I contoured the interlaminar space to accommodate a 12 mm Coflex implant. This is tapped in position and crimped into place. Incision was in copious irrigated 15 round LOBO drain inserted incision closed with 1 Vicryl in the fascia 2-0 Vicryl subcutaneously for Monocryl for final skin closure Steri- Strip sterile dressing placed patient we can taken back in stable condition. I attest to the content of the Intraoperative Record and any orders documented therein. Any exceptions are noted below.
[2016-11-10] MEDS ORDERED: OXYCODONE HCL IR 5 MG TAB (IMMEDIATE RELEASE) PO PRN (15:30)
[2016-11-10] MEDS ORDERED: LORAZEPAM INJ 1 MG in SYRINGE 0.5 ML IV PRN (15:30)
[2016-11-10] MEDS ORDERED: ACETAMINOPHEN 500 MG TAB PO PRN (15:30)
[2016-11-10] MEDS ORDERED: MAGNESIUM HYDROXIDE SUSP 30 ML UDC PO PRN (15:30)
[2016-11-10] MEDS ORDERED: DO NOT ADMINISTER PNEUMOCOCCAL VACCINE PRN ×2 (15:30)
[2016-11-10] MEDS ORDERED: LORAZEPAM 1 MG TAB PO PRN (15:30)
[2016-11-10] MEDS ORDERED: ACETAMINOPHEN 325 MG TAB PO PRN (15:30)
[2016-11-10] MEDS ORDERED: DO NOT ADMINISTER FLU VACCINE PRN ×3 (15:30)
[2016-11-10] MEDS ORDERED: HYDROmorphone INJ 1 MG/ML SYR IV PRN (15:30)
[2016-11-10] MEDS ORDERED: ONDANSETRON INJ 2 MG/ML 2 ML VIAL IV PRN ×2 (15:30→15:45)
[2016-11-10] MEDS ORDERED: FLUMAZENIL 0.1 MG/1 ML 10 ML VIAL IV PRN (15:45)
[2016-11-10] MEDS ORDERED: PROMETHAZINE HCL INJ 12.5 MG in SODIUM CHLORIDE 0.9% 50ML 50 ML IV PRN (15:45)
[2016-11-10] MEDS ORDERED: LABETALOL HCL IV 5 MG/ML 20ML IV PRN (15:45)
[2016-11-10] MEDS ORDERED: KETOROLAC TROMETHAMINE 30 MG/ML VIAL IV. PRN (15:45)
[2016-11-10] MEDS ORDERED: EpHEDrine SULFATE INJ 50 MG/ML AMP IV PRN (15:45)
[2016-11-10] MEDS ORDERED: HYDROmorphone INJ 2 MG/ML SYR/VIAL IV PRN ×2 (15:45→16:15)
[2016-11-10] MEDS ORDERED: ATROPINE SULFATE 0.1 MG/ML 5ML SYR IV PRN (15:45)
--- NOTE | 2016-11-10 16:50 | Anesthesiology Progress Note ---
Anesthesia Post Op Note Date & Time Nov 10, 2016 at 16:50 Vital Signs Pain Intensity: 7.0 Vital Signs Past 12 Hours Date Time Temp Pulse Resp B/P (MAP) Pulse Ox O2 Delivery O2 Flow Rate FiO2 11/10/16 16:45 66 16 136/81 97 Nasal Cannula 3 11/10/16 16:35 62 16 131/73 98 Nasal Cannula 3 11/10/16 16:25 56 16 123/67 98 Nasal Cannula 3 11/10/16 16:15 63 18 123/67 100 Mask 3 11/10/16 16:05 59 18 150/89 100 Mask 3 11/10/16 15:55 67 18 135/58 99 Mask 3 11/10/16 15:45 66 18 121/69 99 Mask 3 11/10/16 15:35 67 16 129/77 99 Mask 10 11/10/16 15:25 36.4 85 16 137/77 99 Mask 10 11/10/16 08:06 97 Room Air 11/10/16 08:04 36.5 60 16 128/84 (99) 97 Room Air 11/10/16 07:30 Room Air Notes Mental Status: alert / awake / arousable, participated in evaluation Pt Amnestic to Procedure: Yes Nausea / Vomiting: adequately controlled Pain: adequately controlled Airway Patency, RR, SpO2: stable & adequate BP & HR: stable & adequate Hydration State: stable & adequate Anesthetic Complications: no major complications apparent
[2016-11-10] MEDS ORDERED: HYDROmorphone HCL 0.5MG/ML 50 ML CASSETTE ONE (16:52)
[2016-11-10] MEDS: HYDROmorphone HCL 0.5MG/ML 50 ML CASSETTE IV PRN ×2 (17:15→23:09)
[2016-11-10] MEDS ORDERED: KETOROLAC TROMETHAMINE 30 MG/ML VIAL IV. SCH (18:00)
[2016-11-10] MEDS: LACTATED RINGER'S 1000ML 1,000 ML IV SCH (18:00)
--- NOTE | 2016-11-10 19:26 | Progress Note ---
Internal Med Progress Note Date of Service: Nov 10, 2016. Provider Documentation: SUBJECTIVE: s/p back surgery afebrile pain under control' denies chest pain or sob or nausea OBJECTIVE: Vital Signs-as noted below Exam: General-alert and awake. Not in distress ENT-normal hearing Neck-no neck masses Lungs-cta b/l no wheezing or crackles Heart-s1 and s2 heard regular rhythm no murmurs Abdomen-soft bowel sounds present non tender no distension Extremities-no edema no erythema musculoskeletal s/p back surgery dressing and drain intact Neuro-alert and awake moves extremities Lab data as noted below. ASSESSMENT & PLAN: BACK PAIN/ LUMBAR HERNIATED DISC S/p fall in August 2016 MRI on 09/16/16 showed large left posterior disc herniation L4-L5, mild broad- based disc bulge L5-S1 s/p surgery today pt/ot and further management as per ortho. HX OF OPIOID ADDICTION On methadone through [facility] ([phone]), dose needs to be verified during their business hours (5:30 am-1:30 pm) On Methadone dose is 103 mg/ day per patient, will continue advised to follow up with pain management. CONSTIPATION Continue Colace PRN Miralax GERD Continue Protonix and Zantac Dvt px scds Disposition to be determined Vital Signs: Date Time Temp Pulse Resp B/P (MAP) Pulse Ox O2 Delivery O2 Flow Rate FiO2 11/10/16 18:30 76 18 114/67 (83) 98 Room Air 11/10/16 18:05 36.3 78 18 112/67 (82) 99 Room Air 11/10/16 17:15 36.3 58 18 121/72 (88) 98 Nasal Cannula 4.0 11/10/16 17:00 36.3 60 16 125/76 99 Room Air 11/10/16 16:45 66 16 136/81 97 Nasal Cannula 3 11/10/16 16:35 62 16 131/73 98 Nasal Cannula 3 11/10/16 16:25 56 16 123/67 98 Nasal Cannula 3 11/10/16 16:15 63 18 123/67 100 Mask 3 11/10/16 16:05 59 18 150/89 100 Mask 3 11/10/16 15:55 67 18 135/58 99 Mask 3 11/10/16 15:45 66 18 121/69 99 Mask 3 11/10/16 15:35 67 16 129/77 99 Mask 10 11/10/16 15:25 36.4 85 16 137/77 99 Mask 10 11/10/16 08:06 97 Room Air 11/10/16 08:04 36.5 60 16 128/84 (99) 97 Room Air 11/10/16 07:30 Room Air 11/09/16 23:30 Room Air 11/09/16 22:46 36.8 61 16 124/82 (96) 96 Room Air 11/09/16 22:38 82 94 Room Air
[2016-11-10] MEDS: KETOROLAC TROMETHAMINE 30 MG/ML VIAL IV. SCH (20:33)
[2016-11-10] MEDS: DEXAMETHASONE INJ 6 MG in SYRINGE 0 ML IV SCH (22:27)
[2016-11-10] MEDS: CLINDAMYCIN IV 600 MG in DEXTROSE 5% 50ML 50 ML IV SCH (22:27)
[2016-11-11] MEDS: KETOROLAC TROMETHAMINE 30 MG/ML VIAL IV. SCH ×2 (02:13→08:04)
[2016-11-11 03:39] VITALS: BP 125/68; PULSE 92; TEMP 36.6; O2SAT 93
[2016-11-11] MEDS: LACTATED RINGER'S 1000ML 1,000 ML IV SCH (03:40)
[2016-11-11] MEDS: DEXAMETHASONE INJ 6 MG in SYRINGE 0 ML IV SCH (05:48)
[2016-11-11] MEDS: CLINDAMYCIN IV 600 MG in DEXTROSE 5% 50ML 50 ML IV SCH (05:48)
[2016-11-11 07:59] VITALS: BP 106/68; PULSE 74; TEMP 36.6; O2SAT 95
[2016-11-11] MEDS ORDERED: RXC5 PO (08:14)
--- NOTE | 2016-11-11 08:15 | Discharge Instructions ---
Discharge Instructions Date of Service Nov 11, 2016. Admission Reason for Admission: Back Pain Discharge Discharge Diagnosis / Problem: spinal stenosis Discharge Goals Goal(s): Improve function Activity Recommendations Activity Limitations: per Instructions/Follow-up section . Instructions / Follow-Up Instructions / Follow-Up ACTIVITY RECOMMENDATIONS: SELF CARE INSTRUCTIONS AFTER A LAMINECTOMY 1. No prolonged sitting (less than 30 minutes for the first 3 weeks after surgery). 2. No bending, lifting more than 5 pounds, or twisting (roll like a log when turning in bed). 3. You may shower 3 days after surgery if no drainage from wound. Thoroughly dry wound. Do not soak in the tub. 4. Please walk as much as you can for exercise. Gradually increase the distance that you walk as your endurance increases. 5. You may drive in 7-10 days if you are comfortable and no longer requiring pain medications. SPECIAL CARE INSTRUCTIONS: VERY IMPORTANT TO READ AND REVIEW A. Your surgical incision has been closed with a cosmetic suture under the skin that will dissolve in about 6 weeks. In 14 days, you can use a pair of clean scissors and cut the suture that is left outside of the skin at the ends of your incision. B. Complications are uncommon, but please contact us if you have any signs or symptoms of: 1. wound infection (fever higher than 102.5 degrees F, redness, separation of wound, drainage, or increasing pain from the incision) 2. blood clots in legs (pain, swelling, redness and warmth in legs) 3. urinary tract infection (fever higher than 102.5 degrees, burning upon urination or increased frequency of urination) 4. nerve problems (inability to walk on your toes or heels, numbness, loss of bowel or bladder control) 5. any other symptoms that concern you. C. Please call the office at if you have any concerns or questions about your operation or recovery. MANAGING PAIN AFTER SPINAL SURGERY 1. Narcotic medication is intended for short-term use and will be provided for surgical pain. Surgical pain usually lasts for a period of 4-6 weeks. Narcotic medication includes Percocet, Vicodin, Darvocet, Tylenol #3 or Lortab. 2. Longer-term pain is more appropriately treated with non-narcotic medication such as Tylenol ES. 3. Muscle spasm is not appropriately treated with narcotics. Muscle relaxers such as Soma, Flexeril or Skelaxin can be used along with Tylenol ES. 4. Remember that we all live with some "aches and pains". This is not unusual or uncommon after an injury or as we get older. 5. We will provide appropriate medication within the normal guidelines of their prescribed use. We will also be very cautious and aware of potential abuse and extended duration of patients' medication needs. 6. Please allow 2-3 days to process refills. Prescriptions will not be mailed but must be picked up at the office. FOLLOW UP VISIT: Keep your scheduled follow-up appointment. Any questions, please call the office at . Current Hospital Diet Patient's current hospital diet: Regular Diet Discharge Diet Recommended Diet: Regular Diet Procedures Procedures Performed: #1 lumbar decompression medial facetectomy and partial discectomy L4 5. #2 placement of posterior stabilization Coflex 12 mm in height. Pending Studies Studies pending at discharge: no Medical Emergencies . Who to Call and When: Medical Emergencies: If at any time you feel your situation is an emergency, please call 911 immediately. . Non-Emergent Contact Non-Emergency issues call your: Primary Care Provider . "Provider Documentation" section prepared by Augustine Mcgrath. . VTE Core Measure Inpt VTE Proph given/why not?: Lul Rodney, SCD's
--- NOTE | 2016-11-11 08:23 | Progress Note ---
Progress Note Date of Service Nov 11, 2016. Progress Note Patient's left leg symptoms are markedly improved. Back pain is controlled. His good strength testing on exam. At this point we would allow him to return home today. Of outline his restrictions. We'll see him in the office the next 2 weeks.
[2016-11-11] MEDS: PANTOprazole SOD 40 MG TAB PO SCH (08:32)
[2016-11-11] MEDS: DOCUSATE SODIUM 100 MG CAP PO SCH (08:32)
[2016-11-11] MEDS: RANITIDINE HCL 150 MG TAB PO SCH (08:33)
[2016-11-11] MEDS: CYCLOBENZAPRINE HCL 5 MG TAB PO PRN (08:33)
[2016-11-11] MEDS: GABAPENTIN 100 MG CAP PO SCH (08:33)
[2016-11-11] MEDS: METHADONE ORAL SOLN 2 MG/1ML PO SCH (08:34)
[2016-11-11] MEDS ORDERED: PATIENT'S OWN CONTROLLED MED SCH (09:00)
[2016-11-11 09:40] VITALS: O2SAT 95
--- NOTE | 2016-11-11 10:30 | Anesthesiology Progress Note ---
Anesthesia Post Op Note Date & Time Nov 11, 2016 at 10:29 Vital Signs Pain Intensity: 6.0 Vital Signs Past 12 Hours Date Time Temp Pulse Resp B/P (MAP) Pulse Ox O2 Delivery O2 Flow Rate FiO2 11/11/16 09:40 95 Room Air 11/11/16 07:59 36.6 74 14 106/68 (81) 95 Room Air 11/11/16 03:39 36.6 92 16 125/68 (87) 93 Room Air 11/10/16 23:15 Room Air 11/10/16 23:01 37.1 102 16 136/77 (96) 94 Room Air Notes Mental Status: alert / awake / arousable, participated in evaluation Pt Amnestic to Procedure: Yes Nausea / Vomiting: adequately controlled Pain: adequately controlled Airway Patency, RR, SpO2: stable & adequate BP & HR: stable & adequate Hydration State: stable & adequate Anesthetic Complications: no major complications apparent
--- NOTE | 2016-11-11 11:15 | Discharge Instructions ---
Discharge Instructions Date of Service Nov 11, 2016. Admission Reason for Admission: Back Pain Discharge Discharge Diagnosis / Problem: SEVERE BACK PAIN S/P SURGERY Discharge Goals Goal(s): Decrease discomfort, Improve function Activity Recommendations Activity Limitations: resume your previous activity PLEASE INCLUDE DISCHARGE INSTRUCTIONS . Instructions / Follow-Up Instructions / Follow-Up FOLLOWUP WITH FAMILY DOCTOR Osmani Aguirre ON October AT 1:05PM FOLLOWUP WITH ORTHOPEDICS IN 2 WEEKS. PLEASE INCLUDE DISCHARGE INSTRUCTIONS FOR ACTIVITY RESTRICTIONS AND INSTRUCTIONS. Current Hospital Diet Patient's current hospital diet: Regular Diet Discharge Diet Recommended Diet: Regular Diet Procedures Procedures Performed: #1 lumbar decompression medial facetectomy and partial discectomy L4 5. #2 placement of posterior stabilization Coflex 12 mm in height. Pending Studies Studies pending at discharge: no Medical Emergencies . Who to Call and When: Medical Emergencies: If at any time you feel your situation is an emergency, please call 911 immediately. . Non-Emergent Contact Non-Emergency issues call your: Primary Care Provider . . "Provider Documentation" section prepared by Jasvir Naqvi. . VTE Core Measure Inpt VTE Proph given/why not?: Lul Rodney, SCD's
[2016-11-11 12:34] VITALS: BP 106/68; PULSE 74; TEMP 36.6; O2SAT 95
--- NOTE | 2016-11-11 15:10 | Progress Note ---
Internal Med Progress Note Date of Service: Nov 11, 2016. Provider Documentation: SUBJECTIVE: s/p back surgery yesterday afebrile doing ok no sob no cough ok for discharge OBJECTIVE: Vital Signs-as noted below Exam: General-alert and awake. Not in distress ENT-normal hearing Neck-no neck masses Lungs-cta b/l no wheezing or crackles Heart-s1 and s2 heard regular rhythm no murmurs Abdomen-soft bowel sounds present non tender no distension Extremities-no edema no erythema musculoskeletal s/p back surgery dressing and drain intact Neuro-alert and awake moves extremities Lab data as noted below. ASSESSMENT & PLAN: BACK PAIN/ LUMBAR HERNIATED DISC S/p fall in August 2016 MRI on 09/16/16 showed large left posterior disc herniation L4-L5, mild broad- based disc bulge L5-S1 s/p surgery 11/10/16 ortho ok for discharge today and followup in 2 weeks. HX OF OPIOID ADDICTION On methadone through [facility] ([phone]), On Methadone dose is 103 mg/ day per patient, will continue advised to follow up with pain management. CONSTIPATION Continue Colace PRN Miralax GERD Continue Protonix and Zantac Discharged home Vital Signs: Date Time Temp Pulse Resp B/P (MAP) Pulse Ox O2 Delivery O2 Flow Rate FiO2 11/11/16 12:34 36.6 74 14 95 Room Air 11/11/16 09:40 95 Room Air 11/11/16 08:30 Room Air 11/11/16 07:59 36.6 74 14 106/68 (81) 95 Room Air 11/11/16 03:39 36.6 92 16 125/68 (87) 93 Room Air 11/10/16 23:15 Room Air 11/10/16 23:01 37.1 102 16 136/77 (96) 94 Room Air 11/10/16 20:30 36.8 87 16 113/72 (86) 100 Room Air 11/10/16 19:21 36.9 71 16 122/74 (90) 96 Room Air 11/10/16 18:30 76 18 114/67 (83) 98 Room Air 11/10/16 18:05 36.3 78 18 112/67 (82) 99 Room Air 11/10/16 18:00 Room Air 11/10/16 18:00 98 Nasal Cannula 4.0 11/10/16 17:15 36.3 58 18 121/72 (88) 98 Nasal Cannula 4.0 11/10/16 17:00 36.3 60 16 125/76 99 Room Air 11/10/16 16:45 66 16 136/81 97 Nasal Cannula 3 11/10/16 16:35 62 16 131/73 98 Nasal Cannula 3 11/10/16 16:25 56 16 123/67 98 Nasal Cannula 3 11/10/16 16:15 63 18 123/67 100 Mask 3 11/10/16 16:05 59 18 150/89 100 Mask 3 11/10/16 15:55 67 18 135/58 99 Mask 3 11/10/16 15:45 66 18 121/69 99 Mask 3 11/10/16 15:35 67 16 129/77 99 Mask 10 11/10/16 15:25 36.4 85 16 137/77 99 Mask 10
--- NOTE | 2016-11-11 15:12 | Discharge Summary ---
Discharge Summary Date of Service Nov 11, 2016. Discharge Summary Admission Date: Nov 09, 2016 at 15:40 Discharge Date: Nov 11, 2016 Discharge Disposition: Home Principal Diagnosis: SEVERE BACK PAIN S/P SURGERY Secondary Diagnoses/Problems: (1) Anxiety Status: Chronic (2) Disc herniation Status: Chronic (3) GERD (gastroesophageal reflux disease) Status: Chronic (4) History of opioid addiction Status: Chronic (5) LUMBAR DISC DISPLACEMENT Status: Chronic Procedures: CHEST XRAY: No acute process. SPINE XRAY: Fluoroscopy provided for a L4-L5 decompression. Consultations: ORTHOPEDICS Medication Reconciliation New Medications: Oxycodone HCl (Oxycodone HCl) 5 Mg Tab 5 MG PO Q4H PRN for moderate pain (pain scale 4-6) for 30 Days, #60 TAB Continued Medications: Acetaminophen (Tylenol) 325 Mg Tab 325 MG PO UD PRN for Pain, TAB Docusate Sodium (Dulcolax Stool Softener) 100 Mg Cap 100 MG PO BID Methadone Hcl (Methadone Hcl Intensol) 10 Mg/Ml Con 103 MG PO QAM Pantoprazole (Protonix) 40 Mg Tab 40 MG PO QAM, #30 TAB Ranitidine Hcl (Zantac) 150 Mg Tab 150 MG PO QAM, TAB Admission Information HPI (per Admitting provider): This is a 36 y/o male with PMH of GERD, lumbar disc herniation, hx opioid addiction on methadone, who presents to the ED with back pain. Patient states back pain started s/p fall in August 2016. No further injuries, but pain has progressively worsened. Pain is located in low back with radiation to left lower extremity. He reports ongoing paresthesias of anterior left reynoso and dorsal aspect of left foot. He has been unable to work secondary to pain. Ambulating has been painful. Has been following with Dr. Goss of [facility] orthopedics. MRI on 09/16/16 showed large left posterior disc herniation L4-L5, mild broad-based disc bulge L5-S1. Had steroid injection without relief. Was initially taking gabapentin and Flexeril but ran out. Has been taking Tylenol. Has also been taking a family member's Percocet, he states this was because he could not get a sooner appointment with his orthopedist. He saw Dr. Goss this morning who sent him to the ER. He received 3 doses of Dilaudid which helped, but the pain is now returning, currently rated 8/10. He denies weakness, groin numbness, or bowel or bladder incontinence. Has been taking Colace for hard stools. Denies any fevers, chills, chest pain, SOB, N/V. Denies history of cardiac disease, stroke, HTN, DM, kidney disease. Physical Exam (per Admitting): General Appearance: WD/WN, no apparent distress Head: normocephalic, atraumatic Eyes: normal inspection, PERRL, EOMI, sclerae normal ENT: hearing grossly normal, pharynx normal Neck: supple, trachea midline Respiratory/Chest: lungs clear, normal breath sounds, no respiratory distress, no accessory muscle use Cardiovascular: regular rate, rhythm, no murmur Abdomen/GI: normal bowel sounds, non tender, soft Extremities/Musculoskelatal: normal inspection, no pedal edema Neurologic/Psych: alert, normal mood/affect, normal reflexes (bilateral patellar reflexes normal), oriented x 3, + pertinent finding (ankle flexion/ extension 5/5 RLE, 4/5 LLE (possibly secondary to pain), able to sense light touch on bilateral LE however subjective decreased sensation left anterior lower leg and dorsum of left foot) Skin: normal color, warm/dry Hospital Course BACK PAIN/ LUMBAR HERNIATED DISC S/p fall in August 2016 MRI on 09/16/16 showed large left posterior disc herniation L4-L5, mild broad- based disc bulge L5-S1 s/p surgery 11/10/16 ortho ok for discharge today and followup in 2 weeks. HX OF OPIOID ADDICTION On methadone through [facility] ([phone]), On Methadone dose is 103 mg/ day per patient, will continue advised to follow up with pain management. CONSTIPATION Continue Colace PRN Miralax GERD Continue Protonix and Zantac Discharged home Total time spent on discharge = 35MINUTES This includes examination of the patient, discharge planning, medication reconciliation, and communication with other providers. Discharge Instructions Discharge Instructions Date of Service Nov 11, 2016. Admission Reason for Admission: Back Pain Discharge Discharge Diagnosis / Problem: SEVERE BACK PAIN S/P SURGERY Discharge Goals Goal(s): Decrease discomfort, Improve function Activity Recommendations Activity Limitations: resume your previous activity PLEASE INCLUDE DISCHARGE INSTRUCTIONS . Instructions / Follow-Up Instructions / Follow-Up FOLLOWUP WITH FAMILY DOCTOR Osmani Aguirre ON October AT 1:05PM FOLLOWUP WITH ORTHOPEDICS IN 2 WEEKS. PLEASE INCLUDE DISCHARGE INSTRUCTIONS FOR ACTIVITY RESTRICTIONS AND INSTRUCTIONS. Current Hospital Diet Patient's current hospital diet: Regular Diet Discharge Diet Recommended Diet: Regular Diet Procedures Procedures Performed: #1 lumbar decompression medial facetectomy and partial discectomy L4 5. #2 placement of posterior stabilization Coflex 12 mm in height. Pending Studies Studies pending at discharge: no Medical Emergencies . Who to Call and When: Medical Emergencies: If at any time you feel your situation is an emergency, please call 911 immediately. . Non-Emergent Contact Non-Emergency issues call your: Primary Care Provider . .
[2016-11-12] MEDS ORDERED: BISACODYL 5 MG TABEC PO PRN (06:00)
[2016-11-12] MEDS ORDERED: BISACODYL 10 MG SUPP PR PRN (06:00)
[2016-11-12] MEDS ORDERED: POLYETHYLENE (MIRALAX) 17 GM PACK PO SCH (09:00)
== END 2016-11-11 14:00 | disposition home or self-care (01) ==
LOC: C.EDB 08:45 → C.MSW 15:40 → ENRESERV 16:00 → INTOOBSV 11-10 15:19 → OBSVTOIN 11-10 15:19 → C.MSW 11-11 10:55
PROVIDERS: ADMIT Internal Medicine; ATTEND Internal Medicine
DX: M51.16 Intervertebral disc disorders with radiculopathy, lumbar region (principal); K21.9 Gastro-esophageal reflux disease without esophagitis; F41.9 Anxiety disorder, unspecified